=== PATIENT | male | born 1940 | race Caucasian/White ===

== ENCOUNTER 2016-11-23 22:20 | Emergency (ER) ==
[2016-11-23 22:36] VITALS: BP 153/89; TEMP 97.8; BMI 26.6
[2016-11-23] MEDS ORDERED: SODIUM CHLORIDE 1,000 ML IV STA (22:45)
[2016-11-23 23:05] LABS: BASOPHILS # (AUTO) 0.1 K/uL (0-0.2); EOSINOPHILS # (AUTO) 0.2 K/ul (0.0-0.7); EOSINOPHILS % (AUTO) 4.3 % (0.0-7.0); HEMATOCRIT 31.7 % (42.0-52.0); HEMOGLOBIN 11.2 g/dl (14.0-18.0); IMMATURE GRANULOCYTE % (AUTO) 0.2 % (0.0-5.0); MEAN CORPUSCULAR HEMOGLOBIN 30.6 pg (27.0-31.0); MEAN CORPUSCULAR HGB CONC 35.3 (31.8-35.4); MEAN CORPUSCULAR VOLUME 86.6 fl (80.0-94.0); MONOCYTES # (AUTO) 0.5 K/uL (0.4-2.0); MONOCYTES % (AUTO) 10.1 (0-10); NEUTROPHILS # (AUTO) 2.1 K/ul (2.0-6.9); NEUTROPHILS % (AUTO) 43.4; PLATELET COUNT 293 10^3/uL (140-440); RED BLOOD COUNT 3.66 10^6/ul (4.70-6.10); WHITE BLOOD COUNT 4.85 K/ul (4.2-10.2)
[2016-11-23 23:29] LABS: ALBUMIN 3.6 g/dL (3.4-5.0); ALBUMIN/GLOBULIN RATIO 0.9; ANION GAP 12.6; BILIRUBIN,TOTAL 0.34 mg/dL (0.00-1.20); BUN/CREATININE RATIO 11.38; CALCIUM 9.2 mg/dL (8.2-10.2); CREATININE 2.02 mg/dL (0.60-1.10); POTASSIUM 3.6 mmol/L (3.5-5.1); TOTAL PROTEIN 7.6 g/dL (5.8-8.1)
--- NOTE | 2016-11-23 23:32 | ED.PDOC ---
General ED Provider: Dr. ROBERT LEON Chief Complaint: Diabetes Stated Complaint: patient states the [facility]. Admits he has been drinking [place] juice for breakfast. [facility] His recent HGA1C was 14 and last creatwas 2.3 Time Seen by Physician: 23:31 Mode of Arrival: Walk-In Information Source: Patient Exam Limitations: No limitations Primary Care Provider: MALIA ALBERTO Nursing and Triage Documentation Reviewed and Agree: Yes Review of Systems - Review Of Systems Constitutional: Reports: No symptoms Eyes: Reports: No symptoms Ears, Nose, Mouth, Throat: Reports: No symptoms Respiratory: Reports: No symptoms Cardiac: Reports: No symptoms GI: Reports: No symptoms : Reports: No symptoms Musculoskeletal: Reports: No symptoms Skin: Reports: No symptoms Neurological: Reports: No symptoms Endocrine: Reports: Increased thirst Hematologic/Lymphatic: Reports: No symptoms All Other Systems: Reviewed and Negative Past Medical History - Past Medical History Endocrine: Reports: DM 2, Dyslipidemia Cardiovascular: Reports: None Respiratory: Reports: None Hematological: Reports: None Gastrointestinal: Reports: GERD Genitourinary: Reports: Kidney stones Neuro/Psych: Reports: None Musculoskeletal: Reports: Arthritis Cancer: Reports: None - Surgical History General Surgical History: Reports: None - Family History Family History: Reports: None - Social History Smoking Status: Former smoker Hx Substance Use: No Alcohol Screening: None - Immunizations Tetanus Shot up to Date: No Physical Exam - Physical Exam Appearance: Well-appearing Ill-appearing: Mild Eyes: BRODY, EOMI, Conjunctiva clear ENT: Ears normal, Nose normal, Oropharynx normal Respiratory: Airway patent, Breath sounds clear, Breath sounds equal, Respirations nonlabored Cardiovascular: RRR, Pulses normal, No rub, No murmur GI/: Soft, Nontender, No masses, Bowel sounds normal, No Organomegaly Musculoskeletal: Normal strength, ROM intact, No edema, No calf tenderness Skin: Warm, Dry, Normal color Neurological: Sensation intact, Motor intact, Reflexes intact, Cranial nerves intact, Alert, Oriented Psychiatric: Affect appropriate, Mood appropriate Critical Care Note - Critical Care Note Total Time (mins): 0 Course - Course Hematology/Chemistry: 11/23/16 22:50 11/23/16 22:50 Orders, Labs, Meds: Lab Review 11/23/16 11/24/16 22:50 00:30 WBC 4.85 RBC 3.66 L Hgb 11.2 L Hct 31.7 L MCV 86.6 MCH 30.6 MCHC 35.3 RDW Coeff of Farrah 11.9 Plt Count 293 Immature Gran % (Auto) 0.2 Neut % (Auto) 43.4 Lymph % (Auto) 41.0 [place] % (Auto) 10.1 H Eos % (Auto) 4.3 Baso % (Auto) 1.0 Immature Gran # (Auto) 0.0 Neut # 2.1 Lymph # 2.0 [place] # 0.5 Eos # 0.2 Baso # 0.1 Sodium 130 L Potassium 3.6 Chloride 91 L Carbon Dioxide 30 Anion Gap 12.6 BUN 23 H Creatinine 2.02 H Estimated GFR (MDRD) 32.00 BUN/Creatinine Ratio 11.38 Glucose 744 H* Calcium 9.2 Total Bilirubin 0.34 AST 35 ALT 61 Alkaline Phosphatase 75 Total Protein 7.6 Albumin 3.6 Globulin 4.0 Albumin/Globulin Ratio 0.90 Urine Color Yellow Urine Clarity Clear Urine pH 5.5 Ur Specific [place] 1.010 Urine Protein Negative Urine Glucose (UA) 2+ Urine Ketones Negative Urine Blood Negative Urine Nitrite Negative Urine Bilirubin Negative Urine Urobilinogen 0.2 Ur Leukocyte Esterase Negative Acetone, Qual None Orders Category Date Time Status BLOOD GLUCOSE MONITORING Q1HR CARE 11/23/16 23:54 Active BLOOD GLUCOSE MONITORING Q1HR CARE 11/24/16 00:19 Active ACCUCHECK (ED) [ED ACCUCHECK ASSESSMENT] .ONCE EMERGENCY 11/24/16 01:34 Active ED IV/MEDIPORT/POWERPORT .ONCE EMERGENCY 11/23/16 22:45 Active ACETONE, QUALITATIVE Stat LAB 11/23/16 22:50 Completed CBC W/ AUTO DIFF Stat LAB 11/23/16 22:50 Completed COMPREHENSIVE METABOLIC PANEL Stat LAB 11/23/16 22:50 Completed URINALYSIS C & S IF INDICATED Stat LAB 11/24/16 00:30 Completed 0.9 % Sodium Chloride [Saline Flush] MEDS 11/23/16 22:45 Discontinued 1 syr IVF PRN PRN Insulin Regular, Human [Humulin R] MEDS 11/24/16 00:18 Discontinued 10 unit SUBCUT ONCE STA Insulin Regular, Human [Humulin R] MEDS 11/24/16 02:22 Discontinued 5 unit SUBCUT ONCE STA Sodium Chloride 0.9% [Sodium Chloride] 1,000 ml MEDS 11/23/16 22:45 Discontinued IV BOLUS Sodium Chloride 0.9% [Sodium Chloride] 1,000 ml MEDS 11/24/16 00:27 Discontinued IV BOLUS Medications Discontinued Medications Generic Name Dose Route Start Last Admin Trade Name Freq PRN Reason Stop Dose Admin Sodium Chloride 1,000 mls @ 1,000 mls/hr 11/23/16 22:45 11/23/16 23:04 Sodium Chloride IV 11/23/16 23:44 1,000 mls/hr BOLUS STA Administration Sodium Chloride 1,000 mls @ 1,000 mls/hr 11/24/16 00:27 11/24/16 00:29 Sodium Chloride IV 11/24/16 01:26 1,000 mls/hr BOLUS STA Administration Insulin Human Regular 10 unit 11/24/16 00:18 11/24/16 00:23 Humulin R SUBCUT 11/24/16 00:19 10 unit ONCE STA Administration Insulin Human Regular 5 unit 11/24/16 02:22 11/24/16 02:49 Humulin R SUBCUT 11/24/16 02:23 5 unit ONCE STA Administration Sodium Chloride 1 syr 11/23/16 22:45 Saline Flush IVF PRN PRN To flush IV Vital Signs: Temp Pulse Resp BP Pulse Ox 11/23/16 22:20 97.8 F 90 20 153/89 H 97 Departure - Departure Time of Disposition: 01:52 Disposition: HOME SELF-CARE Discharge Problem: Uncontrolled diabetes mellitus type 2 without complications 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: without residential use Qualifier Code: (E11.65) Type 2 diabetes mellitus with hyperglycemia Instructions: Type 2 Diabetes in Adults (ED) Condition: Fair Pt referred to PMD for follow-up: Yes Additional Instructions: Avoid [place] juice or sugary products [facility] Allergies/Adverse Reactions: Allergies Insulins Adverse Reaction (Verified 11/24/16 00:33) Rash lisinopril Adverse Reaction (Verified 11/24/16 00:33) simvastatin Adverse Reaction (Verified 11/24/16 00:33) Home Medications: Ambulatory Orders Chlorthalidone 25 mg PO DAILY 11/23/16 Glyburide [Diabeta] 5 mg PO BEDTIME 11/23/16 Glyburide [Diabeta] 10 mg PO DAILY 03/16/17 Omeprazole [Prilosec] 20 mg PO DAILY 11/23/16 Disposition Discussed With: Patient
[2016-11-23] MEDS ORDERED: HUMALOG SUBCUT STA (23:53)
[2016-11-24] MEDS ORDERED: HUMULIN R SUBCUT STA ×2 (00:18→02:22)
[2016-11-24] MEDS ORDERED: SODIUM CHLORIDE 1,000 ML IV STA (00:27)
[2016-11-24 00:46] LABS: ADD URINE MICROSCOPIC NO; BILIRUBIN,URINE Negative (NEGATIVE); KETONES,URINE Negative (NEGATIVE); LEUKOCYTE ESTERASE ,URINE Negative (NEGATIVE); NITRITE,URINE Negative (NEGATIVE); PH,URINE 5.5 (5-9); PROTEIN,URINE Negative (NEGATIVE); URINE, BLOOD Negative (NEGATIVE)
== END 2016-11-24 03:45 | disposition home or self-care (01) ==
LOC: ED 22:20
DX: E11.65 Type 2 diabetes mellitus with hyperglycemia (principal)
CPT/HCPCS: 36415; 80053; 81001; 82009; 82962; 85025; 96360; 96361; 96372; 99283

== ENCOUNTER 2017-10-24 10:47 | Inpatient (IN) ==
[2017-10-24] MEDS ORDERED: SODIUM CHLORIDE 1,000 ML IV STA (11:20)
--- NOTE | 2017-10-24 12:49 | ED.PDOC ---
General ED Provider: Dr. HERMELINDA COTTON Chief Complaint: Altered Mental Status Stated Complaint: ALTERED MENTAL STATE Time Seen by Physician: 11:00 (UPON MY EXAM PT WAS AOX3 NO DEFICIT) Mode of Arrival: Walk-In Information Source: Patient Exam Limitations: No limitations Primary Care Provider: MALIA ALBERTO Nursing and Triage Documentation Reviewed and Agree: Yes Reviewed sepsis parameters & appropriate labs ordered?: Yes System Inflammatory Response Syndrome: Not Applicable Sepsis Protocol: For patient's 13 years and over: Temp is 96.8 and below OR 101 and greater Pulse >90 BPM Resp >20/minute Acutely Altered Mental Status Are patient's symptoms suggestive of a new infection, such as: -Pneumonia -Skin, Soft Tissue -Endocarditis -UTI -Bone, Joint Infection -Implantable Device -Acute Abdominal Infection -Wound Infection -Meningitis -Blood Stream Catheter Infection -Unknown System Inflammatory Response Syndrome: Not Applicable Neurological Complaint Exam - Altered Mental Status Complaint/Exam Current Mental Status: Confusion Last Known Well: 1 DAY AGO Onset: Gradual Duration: 1 DAY UPON ARRIVAL WAS TOTALLY ORIENATEDX3 NO DEFICITS NO PAIN Symptoms Are: Resolved Timing: Intermittent Episodes Lasting: Hours Initial Severity: Mild Current Severity: None Eye Deviation Present: No Character: Reports: Confusion Aggravating: Reports: None Alleviating: Reports: Spontaneous resolution Associated Signs and Symptoms: Denies: Dizziness, Weakness, Headache, Fever, Illness, Nuchal rigidity, Seizure, Nausea, Vomiting, Recently depressed, Trauma Cardiac Risk Factors: Reports: Diabetes, Elevated lipids CVA Risk Factors: Reports: Diabetes Related Surgical History: Reports: None Carotid Bruit Present: No Nystagmus Present: No Gag Reflex Present: Yes Meningeal Signs Positive: No Focal Weakness: Present: None Focal Sensory Loss: Present: None Gait: Normal Babinski Sign: Negative Right, Negative Left Differential Diagnoses: Hypothermia, Intoxication, Metabolic Disorder, Hypoglycemia, Medication reaction, Sepsis, TIA, CVA Review of Systems - Review Of Systems Constitutional: Reports: No symptoms Eyes: Reports: No symptoms Ears, Nose, Mouth, Throat: Reports: No symptoms Respiratory: Reports: No symptoms Cardiac: Reports: No symptoms GI: Reports: No symptoms : Reports: No symptoms Musculoskeletal: Reports: No symptoms Skin: Reports: No symptoms Neurological: Reports: Cognitive dysfunction Endocrine: Reports: No symptoms Hematologic/Lymphatic: Reports: No symptoms All Other Systems: Reviewed and Negative Past Medical History - Past Medical History Previously Healthy: Yes Endocrine: Reports: DM 2, Dyslipidemia Cardiovascular: Reports: None Respiratory: Reports: None Hematological: Reports: None Gastrointestinal: Reports: GERD Genitourinary: Reports: Kidney stones Neuro/Psych: Reports: None Musculoskeletal: Reports: Arthritis Cancer: Reports: None - Surgical History General Surgical History: Reports: None - Family History Family History: Reports: None - Social History Smoking Status: Former smoker Hx Substance Use: No Alcohol Screening: None Physical Exam - Physical Exam Appearance: Well-appearing, No pain distress, Well-nourished Eyes: BRODY, EOMI, Conjunctiva clear ENT: Ears normal, Nose normal, Oropharynx normal Respiratory: Airway patent, Breath sounds clear, Breath sounds equal, Respirations nonlabored Cardiovascular: RRR, Pulses normal, No rub, No murmur GI/: Soft, Nontender, No masses, Bowel sounds normal, No Organomegaly Musculoskeletal: Normal strength, ROM intact, No edema, No calf tenderness Skin: Warm, Dry, Normal color Neurological: Sensation intact, Motor intact, Reflexes intact, Cranial nerves intact, Alert, Oriented Psychiatric: Affect appropriate, Mood appropriate Interpretation - Radiology Interpretation Radiology Interpretation By: Radiologist Re-Evaluation - Re-Evaluation Time of Re-Evaluation: 12:00 Status: Improved Vital Signs Stable: Yes Pain Level: 0 Appearance: NAD Lungs: Clear Skin: Warm and Dry Neuro: Alert and Oriented X3 CV: RRR - Re-Evaluation Time of Re-Evaluation: 12:50 Status: Improved Vital Signs Stable: Yes Pain Level: 0 Appearance: NAD Skin: Warm and Dry Neuro: Alert and Oriented X3 CV: RRR Physician Notification - Case Discussed Physician Notified: [email or web address] Time of Notification: 13:42 Admit To: Inpatient Critical Care Note - Critical Care Note Total Time (mins): 0 Course - Course Hematology/Chemistry: 10/24/17 11:40 10/24/17 11:40 Orders, Labs, Meds: Lab Review 10/24/17 10/24/17 10/24/17 11:40 11:40 11:40 WBC 6.41 RBC 4.11 L Hgb 12.6 L Hct 35.0 L MCV 85.2 MCH 30.7 MCHC 36.0 H RDW Coeff of Farrah 11.8 Plt Count 314 Immature Gran % (Auto) 0.5 Neut % (Auto) 56.9 Lymph % (Auto) 27.0 [place] % (Auto) 12.5 H Eos % (Auto) 2.2 Baso % (Auto) 0.9 Immature Gran # (Auto) 0.0 Neut # 3.7 Lymph # 1.7 [place] # 0.8 Eos # 0.1 Baso # 0.1 Puncture Site O2 Saturation ABG pH ABG pCO2 ABG pO2 ABG HCO3 ABG Total CO2 ABG Base Excess Timothy Test FiO2 % Sodium 132 L Potassium 3.6 Chloride 91 L Carbon Dioxide 27 Anion Gap 17.6 BUN 31 H Creatinine 1.99 H Estimated GFR (MDRD) 33.00 BUN/Creatinine Ratio 15.57 Glucose 525 H* Lactic Acid 13.6 Calcium 10.3 H Total Bilirubin 0.8 AST 32 ALT 38 Alkaline Phosphatase 77 Total Creatine Kinase 58 Troponin I < 0.0100 Total Protein 8.1 Albumin 3.7 Globulin 4.4 Albumin/Globulin Ratio 0.84 Procalcitonin TSH Free T4 Urine Color Urine Clarity Urine pH Ur Specific [place] Urine Protein Urine Glucose (UA) Urine Ketones Urine Blood Urine Nitrite Urine Bilirubin Urine Urobilinogen Ur Leukocyte Esterase Urine Opiates Screen Ur Oxycodone Screen Urine Methadone Screen Ur Propoxyphene Screen Ur Barbiturates Screen U Tricyclic Antidepress Ur Phencyclidine Scrn Ur Amphetamine Screen U Methamphetamines Scrn U Benzodiazepines Scrn Urine Cocaine Screen U Cannabinoids Screen 10/24/17 10/24/17 10/24/17 11:40 11:40 11:50 WBC RBC Hgb Hct MCV MCH MCHC RDW Coeff of Farrah Plt Count Immature Gran % (Auto) Neut % (Auto) Lymph % (Auto) [place] % (Auto) Eos % (Auto) Baso % (Auto) Immature Gran # (Auto) Neut # Lymph # [place] # Eos # Baso # Puncture Site R rad O2 Saturation 99.0 ABG pH 7.621 H* ABG pCO2 23.6 L ABG pO2 123.0 H ABG HCO3 24.3 ABG Total CO2 25 ABG Base Excess 3 H Timothy Test + FiO2 % 21.0 Sodium Potassium Chloride Carbon Dioxide Anion Gap BUN Creatinine Estimated GFR (MDRD) BUN/Creatinine Ratio Glucose Lactic Acid Calcium Total Bilirubin AST ALT Alkaline Phosphatase Total Creatine Kinase Troponin I Total Protein Albumin Globulin Albumin/Globulin Ratio Procalcitonin < 0.05 TSH 4.500 Free T4 0.97 Urine Color Urine Clarity Urine pH Ur Specific [place] Urine Protein Urine Glucose (UA) Urine Ketones Urine Blood Urine Nitrite Urine Bilirubin Urine Urobilinogen Ur Leukocyte Esterase Urine Opiates Screen Ur Oxycodone Screen Urine Methadone Screen Ur Propoxyphene Screen Ur Barbiturates Screen U Tricyclic Antidepress Ur Phencyclidine Scrn Ur Amphetamine Screen U Methamphetamines Scrn U Benzodiazepines Scrn Urine Cocaine Screen U Cannabinoids Screen 10/24/17 10/24/17 12:20 12:20 WBC RBC Hgb Hct MCV MCH MCHC RDW Coeff of Farrah Plt Count Immature Gran % (Auto) Neut % (Auto) Lymph % (Auto) [place] % (Auto) Eos % (Auto) Baso % (Auto) Immature Gran # (Auto) Neut # Lymph # [place] # Eos # Baso # Puncture Site O2 Saturation ABG pH ABG pCO2 ABG pO2 ABG HCO3 ABG Total CO2 ABG Base Excess Timothy Test FiO2 % Sodium Potassium Chloride Carbon Dioxide Anion Gap BUN Creatinine Estimated GFR (MDRD) BUN/Creatinine Ratio Glucose Lactic Acid Calcium Total Bilirubin AST ALT Alkaline Phosphatase Total Creatine Kinase Troponin I Total Protein Albumin Globulin Albumin/Globulin Ratio Procalcitonin TSH Free T4 Urine Color Yellow Urine Clarity Clear Urine pH 6.0 Ur Specific [place] 1.010 Urine Protein Negative Urine Glucose (UA) 3+ H Urine Ketones Trace Urine Blood Negative Urine Nitrite Negative Urine Bilirubin Negative Urine Urobilinogen 0.2 Ur Leukocyte Esterase Negative Urine Opiates Screen Negative Ur Oxycodone Screen Negative Urine Methadone Screen Negative Ur Propoxyphene Screen Negative Ur Barbiturates Screen Negative U Tricyclic Antidepress Negative Ur Phencyclidine Scrn Negative Ur Amphetamine Screen Negative U Methamphetamines Scrn Negative U Benzodiazepines Scrn Negative Urine Cocaine Screen Negative U Cannabinoids Screen Negative Orders Category Date Time Status ABG DRAW REQUEST Stat CARDIO 10/24/17 11:17 Completed EKG-(ED ONLY) Stat CARDIO 10/24/17 11:19 Completed NPO REMINDER: IMAGING ONCE CARE 10/24/17 11:19 Completed ED IV/MEDIPORT/POWERPORT .ONCE EMERGENCY 10/24/17 11:20 Active ABG Stat LAB 10/24/17 11:50 Completed BLOOD CULTURE (ED ONLY) Stat LAB 10/24/17 11:40 Received CBC W/ AUTO DIFF Stat LAB 10/24/17 11:40 Completed COMPREHENSIVE METABOLIC PANEL Stat LAB 10/24/17 11:40 Completed CREATINE KINASE Stat LAB 10/24/17 11:40 Completed FREE T4 (FREE THYROXINE) Stat LAB 10/24/17 11:40 Completed LACTIC ACID Stat LAB 10/24/17 11:40 Completed PROCALCITONIN Stat LAB 10/24/17 11:40 Completed THYROID STIMULATING HORMONE Stat LAB 10/24/17 11:40 Completed TROPONIN I Stat LAB 10/24/17 11:40 Completed URINALYSIS C & S IF INDICATED Stat LAB 10/24/17 12:20 Completed URINE DRUG SCREEN (RAPID FOR ED) [DRUG SCREEN, URINE, LAB 10/24/17 12:20 Completed RAPID] Stat 0.9 % Sodium Chloride [Saline Flush] MEDS 10/24/17 11:20 Active 1 syr IVF PRN PRN Insulin Regular, Human [Humulin R] MEDS 10/24/17 12:52 Discontinued 10 unit SUBCUT ONCE STA Sodium Chloride 0.9% [Sodium Chloride] 1,000 ml MEDS 10/24/17 11:20 Active IV 125 mls/hr CT CHEST W/O CONTRAST Stat RADS 10/24/17 11:[address] HEAD W/O CONTRAST Stat RADS 10/24/17 11:19 Completed Medications Generic Name Dose Route Start Last Admin Trade Name Freq PRN Reason Stop Dose Admin Sodium Chloride 1,000 mls @ 125 mls/hr 10/24/17 11:20 10/24/17 12:18 Sodium Chloride IV 10/24/17 19:19 125 mls/hr .Q8H STA Administration Sodium Chloride 1 syr 10/24/17 11:20 10/24/17 12:17 Saline Flush IVF 1 syr PRN PRN Administration To flush IV Discontinued Medications Generic Name Dose Route Start Last Admin Trade Name Freq PRN Reason Stop Dose Admin Insulin Human Regular 10 unit 10/24/17 12:52 10/24/17 13:16 Humulin R SUBCUT 10/24/17 12:53 10 unit ONCE STA Administration Vital Signs: Temp Pulse Resp BP Pulse Ox 10/24/17 10:51 97.1 F L 92 H 20 143/77 H 98 Departure - Departure Time of Disposition: 15:00 Disposition: ADMITTED INPATIENT Discharge Problem: Altered mental status, Uncontrolled diabetes mellitus Instructions: Altered Mental Status (ED) Condition: Good Pt referred to PMD for follow-up: Yes IPMP verified?: No Additional Instructions: Please call your Family Physician as soon as possible to schedule a follow-up appointment. Allergies/Adverse Reactions: Allergies Insulins Adverse Reaction (Verified 10/24/17 10:57) Rash lisinopril Adverse Reaction (Verified 10/24/17 10:57) simvastatin Adverse Reaction (Verified 10/24/17 10:57) Home Medications: Ambulatory Orders Chlorthalidone 25 mg PO DAILY 11/23/16 Omeprazole [Prilosec] 20 mg PO QDAC 10/24/17 Ropinirole HCl [Requip Xl] 2 mg PO BEDTIME 10/24/17 Saxagliptin HCl [Onglyza] 5 mg PO DAILY 10/24/17
[2017-10-24] MEDS ORDERED: HUMULIN R SUBCUT STA ×2 (12:52→13:43)
--- NOTE | 2017-10-24 13:24 | CT ---
Exam: CT of the brain without intravenous contrast. Comparison: None available. Reason for exam: Altered mental status. FINDINGS: No acute intracranial hemorrhage, mass effect, ventricular dilatation, or territorial infa rction. The quadrigeminal and ambient cisterns are patent. There is no extraaxial fluid collection. Parenchymal changes are seen consistent with chronic microvascular disease and age related atrophy. Calcifications are seen in the vertebral arteries. No displaced calvarial fracture is seen. There is minimal mucosal thickening in the ethmoid sinuses. Impression: 1. No acute intracranial findings. 2. Parenchymal changes consistent with chronic microvascular disease. Report faxed at [id number] hours on 10/24/2017.
--- NOTE | 2017-10-24 13:27 | CT ---
EXAM: CT chest without contrast. HISTORY: Cough. COMPARISON: 06/13/2010. TECHNIQUE: Multiple axial images of the chest were obtained without intravenous contrast. Images we re reformatted in the sagittal and coronal planes. FINDINGS: Evaluation for lymphadenopathy is limited by lack of intravenous contrast. Heart size is normal. There is no pericardial effusion. Atherosclerotic calcifications present. Calcified granulomatous changes noted. Calcified pleural plaquing noted along the right diaphragm. No consolidation, pleural effusion or pneumothorax identified. Moderate sized hiatal hernia is present. The bladder wall may be calcified but appears unchanged. N onobstructing left renal calculi are present. Probable left lower pole cortical cyst. Old compressi on deformity of T5 noted. IMPRESSION: No acute cardiopulmonary process.
[2017-10-24 15:22] VITALS: BMI 23.0
[2017-10-24] MEDS ORDERED: INFUVITE ADULT 10 ML in SODIUM CHLORIDE 0.9%-KCL 20 MEQ 1,000 ML IV STA (17:08)
[2017-10-24] MEDS: HUMULIN R SUBCUT PRN (17:28)
[2017-10-24] MEDS ORDERED: INFUVITE ADULT IV ONE ×2 (17:32→21:32)
[2017-10-24] MEDS ORDERED: NON-FORMULARY MEDICATION (Ropinirole Hcl [Requip] 2 MG) PO SCH (21:00)
[2017-10-24] MEDS ORDERED: ROPINIROLE HCL 2 MG PO SCH (21:00)
[2017-10-24] MEDS ORDERED: REQUIP PO SCH (21:00)
[2017-10-24] MEDS: REQUIP PO SCH (21:25)
[2017-10-25] MEDS: PRILOSEC PO SCH (06:13)
[2017-10-25] MEDS: HUMULIN R SUBCUT PRN ×4 (06:13→20:48)
[2017-10-25] MEDS: HYDROCHLOROTHIAZIDE PO SCH (08:52)
[2017-10-25] MEDS ORDERED: CHLORTHALIDONE 25 MG PO SCH (09:00)
--- NOTE | 2017-10-25 09:36 | US ---
EXAM: ULTRASOUND CAROTID DUPLEX, BILATERAL HISTORY: Altered mental status FINDINGS: Hayes-scale ultrasound, color Doppler and spectral analysis was performed. Velocities are in meters per second. By hayes scale and color Doppler imaging, there were regions of heterogeneous plaque formation identif ied within the carotid bulbs and internal carotid arteries. These regions of plaque appeared to [place] in less than 50% vessel diameter. RIGHT: External carotid artery peak systolic velocity: 0.9 Common carotid artery peak systolic velocity/end diastolic velocity: 0.7/0.2 Internal carotid artery peak systolic velocity: 0.7 ICA/CCA peak systolic velocity ratio: 1.0 ICA end diastolic velocity: 0.3 LEFT: External carotid artery peak systolic velocity: 1.1 Common carotid artery peak systolic velocity/end diastolic velocity: 0.8/0.2 Internal carotid artery peak systolic velocity: 0.8 ICA/CCA peak systolic velocity ratio: 1.0 ICA end diastolic velocity: 0.3 The right and left vertebral arteries were antegrade. IMPRESSION: 1. By hayes scale and color Doppler imaging, there were regions of heterogeneous plaque formation scarlett ntified within the carotid bulbs and internal carotid arteries. These regions of plaque appeared to remain less than 50% vessel diameter. 2. Internal carotid artery peak systolic velocities and ICA/CCA peak systolic velocity ratios indica te no hemodynamically significant stenosis bilaterally. 3. Both vertebral arteries were antegrade.
[2017-10-25] MEDS: REQUIP PO SCH (20:48)
[2017-10-26] MEDS: PRILOSEC PO SCH (05:53)
[2017-10-26] MEDS: HUMULIN R SUBCUT PRN ×4 (05:53→21:26)
[2017-10-26] MEDS: HYDROCHLOROTHIAZIDE PO SCH (08:40)
[2017-10-26] MEDS: TRADJENTA PO SCH (12:00)
[2017-10-26] MEDS: GLUCOPHAGE PO SCH (17:39)
[2017-10-26] MEDS: NICODERM 21 MG TD SCH (17:42)
[2017-10-26] MEDS: REQUIP PO SCH (21:26)
[2017-10-27] MEDS: HUMULIN R SUBCUT PRN ×4 (05:33→20:50)
[2017-10-27] MEDS: GLUCOPHAGE PO SCH ×2 (09:13→16:34)
[2017-10-27] MEDS: TRADJENTA PO SCH (09:13)
[2017-10-27] MEDS: HYDROCHLOROTHIAZIDE PO SCH (09:13)
[2017-10-27] MEDS: NICODERM 21 MG TD SCH (09:14)
[2017-10-27] MEDS: REQUIP PO SCH (20:51)
[2017-10-28] MEDS: HUMULIN R SUBCUT PRN ×4 (05:31→20:41)
[2017-10-28] MEDS: HYDROCHLOROTHIAZIDE PO SCH (08:21)
[2017-10-28] MEDS: NICODERM 21 MG TD SCH (08:21)
[2017-10-28] MEDS: GLUCOPHAGE PO SCH ×2 (08:21→17:05)
[2017-10-28] MEDS: TRADJENTA PO SCH (08:21)
[2017-10-28] MEDS: REQUIP PO SCH (20:41)
[2017-10-29] MEDS: HUMULIN R SUBCUT PRN ×2 (05:55→11:30)
[2017-10-29] MEDS: GLUCOPHAGE PO SCH (09:00)
[2017-10-29] MEDS: TRADJENTA PO SCH (09:00)
[2017-10-29] MEDS: NICODERM 21 MG TD SCH (09:00)
[2017-10-29 10:39] VITALS: BP 118/69; TEMP 97.9
--- NOTE | 2017-11-02 15:20 | DS ---
PATIENT IDENTIFICATION: 77 year old male was admitted to the hospital because of sudden confusion and recent episode of ataxia with headache. The patient was noted to have a markedly elevated blood sugar in the emergency room 525 and alkalotic blood gasses. HOSPITAL COURSE: The patient at the examination was alert and responsive and oriented. He was not dyspneic or tachypneic. NECK: No masses and No bruit CHEST: Symmetrical and equal LUNGS: Clear to auscultation in both sides HEART: Normal sinus rhythm ABDOMEN: Unremarkable Blood sugar was 525 on admission. HgbA1c is 17.3. His medication for diabetes was Onglyza 5mg. He had a prescription of Metformin however that was not filled since he still has it in his possession. The patient's fast insulin was measured the following day showing 6.5, normal and plasma C Peptide 1.4 still within normal. DELIA antibody less than 5. The patient's urine drug screen was negative. Urinalysis 3+ sugar, trace Ketones. The patient was given 9% Sodium Chloride solution intervenously at 125cc per hour. He was placed on a sliding scale insulin. Humulin R was utilized. His Onglyza was discontinued and the rest of his medications were continued. The patient was given Linagliptin 5mg PO daily as well Metformin 500mg twice a day. His EGFR was 46. Blood sugar was monitored and it had been decreasing. The patient was feeling better. The labs done 10/26/17 showed moderate anemia 11.1gram hgb, 31.9 hct, normal WBC and plt count. His sodium and potassium slightly below normal not clinically significant and the BUN has decreased to 18 from 31 and creatinine 1.49 from 1.99 and EGFR is 46. Blood sugar was 344 fasting. The patient however looks well and not dyspneic or tachypneic with good color. He denies any chest pain, headaches or any visual disturbances. He continued to improved and the patient on 10/29/17 was alert, ambulatory and feels ready to go home. Another hematology shows CBC with moderate anemia with normal WBC and differential as well as plt count. The atrial blood gasses are better with oxygen saturation of 98, pH 7.51, pCO2 37, pO2 101, HCO3 29, total Co2 30 and base excess +6 and FiO2 21.Electrolyte are normal and his fasting blood sugar this morning was 206. His BUN has risen from 18 to 26 and creatinine of 1.63 from 1.49. EGFR has decreased to 41. I had advised the patient to drink plenty of water. He does drink coffee. I did advised him to reduce the coffee to about two cups of coffee a day. He drinks a whole lot more than that. He also puts sugar is in his coffee. At discharge he was alert, ambulatory with movement of all extremities and no facial weakness. LUNGS: Clear HEART: Normal sinus rhythm ABDOMEN: Unremarkable LEGS: No tenderness This patient was given 21mg of NicoDerm CQ while in the hospital. The NicoDerm was prescribed to hopefully improve his cognitive component. He has probably minimal cognitive improvement and his MMSE is 29. At discharge he was instructed not to resume the Onglyza and was prescribed Tradjenta 5mg daily and Metformin 500mg twice a day and NicoDerm CQ 125mg one patch daily. The patient was further instructed to followup with the [facility] in [place] as soon as possible. He had Carotid studies done during this admission and they were less than 50% narrowing or both internal carotid. He was given the dietary instruction by the information technology analyst. I did inform him that if he wants to follow more or less a simpler diet then he should eat vegetables, meat and fish and make sure the meat is lean. He should have also portion control or portion sizes. That might improve his sugar with the medication and hopefully improve his cognitive component. FINAL DIAGNOSES: 1. Episodes of confusion, transient etiology undetermined 2. Type 2 Diabetes Mellitus, uncontrolled blood sugar 525 3. History of restless leg syndrome 4. History of GERD PROGNOSIS: Guarded MTDD
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
--- NOTE | 2017-11-19 13:51 | PN ---
DATE OF VISIT: 10/26/17 SUBJECTIVE: The patient is more alert today and had been get out of bed and walking. VITAL SIGNS: Temperature 97.7 axillary, pulse 82, blood pressure 130/78, respiratory rate 18 , oxygen saturation 97% room air. He denies any headaches or double vision. No dizziness, no chest pain and no abdominal pain. Carotid studies showed no significant stenosis and it is less then 50%. The patient does remember his birthday and also his relatives. LUNGS: Clear although diminished breath sounds, no rales or wheezing HEART: Audible and regular. The patient's CBC today showed moderate anemia, 11.1 hgb , 31.9 hc, normal WBC and plt count. Chemistry showed slightly worse Potassium otherwise unremarkable. Electrolytes and Co2 27, BUN 18 from 31, creatinine down to 1.49 from 1.99. EGFR 46. Blood sugar this morning was down to 344. Albumin slightly lower at 3.2. Meals 100%. MTDD
--- NOTE | 2017-11-19 13:58 | PN ---
DATE OF VISIT: 10/27/17 SUBJECTIVE: The patient is alert and ambulatory with good movement of all extremities. He is pleasant and conversant and denies any headaches, visual disturbances or double vision. No chest pain and no abdominal pain. LUNGS: Still diminished breath sounds but no rales or wheezing. HEART: Audible and regular with good tones. VITAL SIGNS: Temperature 98.2, pulse 83, blood pressure 146/84, respiratory rate 15 and oxygen saturation 100 at room air. Good movement of all extremities. MTDD
--- NOTE | 2017-11-19 14:41 | PN ---
DATE OF VISIT: 10/28/17 SUBJECTIVE: The patient today is alert, ambulatory with movement of all extremities. He is more conversant. He recounted all his family tree. He has several half brothers and sisters. His mother was three times and the last marriage consisted of three siblings; him, Moris and a sister. He has contact with all his older siblings. He mentioned that his mother immigrated with her parents from [place] and was 7 years of age when she came to the [place]. 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 The patient is given a nicotine patch, hopefully improving his mentation. The patient seems to have a better cognitive function. I did tell him that he would need to followup with 's for a closer followup with his diabetes. This patient is getting a sliding scale insulin plus Tradjenta because of his renal problems and 500mg of Metformin. The patient's EGFR is now 46. The patient will have a repeat CBC and CMP tomorrow and possibly discharge him. I did advise him to exercise such as walking. He also told me that he has two children and he knows what they are; a son and girl. They have their own families. JAMIA
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
== END 2017-10-29 14:35 | disposition home or self-care (01) | DRG 948 ==
LOC: ED 10:47 → MEDSURG B 13:53
PROVIDERS: ADMIT General Practice; ATTEND General Practice
DX: R41.82 Altered mental status, unspecified (principal); E11.65 Type 2 diabetes mellitus with hyperglycemia; R27.0 Ataxia, unspecified; D64.89 Other specified anemias; I10 Essential (primary) hypertension; G25.81 Restless legs syndrome; K21.9 Gastro-esophageal reflux disease without esophagitis; Z79.899 Other long term (current) drug therapy
CPT/HCPCS: 36415; 80053; 80306; 81001; 82550; 82803; 82962; 83036; 83519; 83525; 83605; 84145; 84439; 84443; 84484; 84681; 85025; 86341; 87040; 93005; 93010; 96360; 96361; 96372; 99223; 99232; 99239; 99284

== ENCOUNTER 2017-10-30 20:43 | Emergency (ER) ==
[2017-10-30 20:53] VITALS: BP 156/89; TEMP 97; BMI 24.2
--- NOTE | 2017-10-30 20:57 | ED.PDOC ---
General ED Provider: Dr. ABDULKADIR PRINGLE Chief Complaint: Diabetes Stated Complaint: Patient was discharged from the hospital yesterday, called EMS , as his BS was more than 500. Time Seen by Physician: 20:56 Mode of Arrival: Ambulance Information Source: Patient, EMT Nursing and Triage Documentation Reviewed and Agree: Yes Reviewed sepsis parameters & appropriate labs ordered?: No System Inflammatory Response Syndrome: Not Applicable Sepsis Protocol: For patient's 13 years and over: Temp is 96.8 and below OR 101 and greater Pulse >90 BPM Resp >20/minute Acutely Altered Mental Status Are patient's symptoms suggestive of a new infection, such as: -Pneumonia -Skin, Soft Tissue -Endocarditis -UTI -Bone, Joint Infection -Implantable Device -Acute Abdominal Infection -Wound Infection -Meningitis -Blood Stream Catheter Infection -Unknown Endocrine Complaint Exam - Diabetic Complication Complaint/Exam Symptoms Are: Still present Timing: Constant Initial Severity: Moderate Current Severity: Moderate Character: Alert Aggravating: Reports: Medication change Alleviating: Reports: None Associated Signs and Symptoms: Denies: Decreased LOC, Polydipsia, Polyuria, Polyphagia, Weight loss, Abdominal pain, Nausea, Vomiting, Fever, Diaphoresis, Fruity breath Related History: Reports: Similar episode Cardiac Risk Factors: Reports: DM, Hypertension CVA Risk Factors: Reports: DM, Hypertension Serious Bacterial Infection Risk Factors: Reports: None Related Surgical History: Reports: None Acetone on Breath: No Dry Mucous Membranes: No Kussmaul Respirations: No Meningeal Signs: No Focal Weakness: None Focal Sensory Loss: None Gait: Normal Nystagmus Present: No Gag Reflex Present: No Finger to Nose: Normal Romberg Test Positive: No Differential Diagnoses: Hyperosmolar State, Hyperglycemia Review of Systems - Review Of Systems Constitutional: Reports: Malaise, Weakness Eyes: Reports: No symptoms Ears, Nose, Mouth, Throat: Reports: No symptoms Respiratory: Reports: No symptoms Cardiac: Reports: No symptoms GI: Reports: No symptoms : Reports: No symptoms Musculoskeletal: Reports: No symptoms Skin: Reports: No symptoms Neurological: Reports: No symptoms Endocrine: Reports: No symptoms Hematologic/Lymphatic: Reports: No symptoms All Other Systems: Reviewed and Negative Past Medical History - Past Medical History Previously Healthy: Yes Endocrine: Reports: DM 2, Dyslipidemia Cardiovascular: Reports: None Respiratory: Reports: None Hematological: Reports: None Gastrointestinal: Reports: GERD Genitourinary: Reports: Kidney stones Neuro/Psych: Reports: None Musculoskeletal: Reports: Arthritis Cancer: Reports: None - Surgical History General Surgical History: Reports: None - Family History Family History: Reports: None - Social History Smoking Status: Former smoker Hx Substance Use: No Alcohol Screening: None - Immunizations Tetanus Shot up to Date: No (unknown) Physical Exam - Physical Exam Appearance: Ill-appearing Eyes: BRODY, EOMI, Conjunctiva clear ENT: Ears normal, Nose normal, Oropharynx normal Respiratory: Airway patent, Breath sounds clear, Breath sounds equal, Respirations nonlabored Cardiovascular: RRR, Pulses normal, No rub, No murmur GI/: Soft, Nontender, No masses, Bowel sounds normal, No Organomegaly Musculoskeletal: Normal strength, ROM intact, No edema, No calf tenderness Skin: Warm, Dry, Normal color Neurological: Sensation intact, Motor intact, Reflexes intact, Cranial nerves intact, Alert, Oriented Psychiatric: Affect appropriate, Mood appropriate Critical Care Note - Critical Care Note Total Time (mins): 15 Course - Course Hematology/Chemistry: 10/30/17 21:04 10/30/17 21:04 Orders, Labs, Meds: Lab Review 10/30/17 10/30/17 10/30/17 21:04 21:04 21:04 WBC 6.85 RBC 3.57 L Hgb 10.9 L Hct 31.0 L MCV 86.8 MCH 30.5 MCHC 35.2 RDW Coeff of Farrah 11.9 Plt Count 338 Immature Gran % (Auto) 0.3 Neut % (Auto) 55.1 Lymph % (Auto) 29.2 [place] % (Auto) 10.8 H Eos % (Auto) 3.6 Baso % (Auto) 1.0 Immature Gran # (Auto) 0.0 Neut # 3.8 Lymph # 2.0 [place] # 0.7 Eos # 0.3 Baso # 0.1 Sodium 138 Potassium 3.5 Chloride 99 Carbon Dioxide 27 Anion Gap 15.5 BUN 34 H Creatinine 2.07 H Estimated GFR (MDRD) 31.00 BUN/Creatinine Ratio 16.42 Glucose 326 H Calcium 9.7 Total Bilirubin 0.6 AST 24 ALT 29 Alkaline Phosphatase 67 Total Protein 7.3 Albumin 3.6 Globulin 3.7 Albumin/Globulin Ratio 0.97 Urine Color Urine Clarity Urine pH Ur Specific [place] Urine Protein Urine Glucose (UA) Urine Ketones Urine Blood Urine Nitrite Urine Bilirubin Urine Urobilinogen Ur Leukocyte Esterase Acetone, Qual None 10/31/17 01:15 WBC RBC Hgb Hct MCV MCH MCHC RDW Coeff of Farrah Plt Count Immature Gran % (Auto) Neut % (Auto) Lymph % (Auto) [place] % (Auto) Eos % (Auto) Baso % (Auto) Immature Gran # (Auto) Neut # Lymph # [place] # Eos # Baso # Sodium Potassium Chloride Carbon Dioxide Anion Gap BUN Creatinine Estimated GFR (MDRD) BUN/Creatinine Ratio Glucose Calcium Total Bilirubin AST ALT Alkaline Phosphatase Total Protein Albumin Globulin Albumin/Globulin Ratio Urine Color Yellow Urine Clarity Clear Urine pH 5.0 Ur Specific [place] 1.015 Urine Protein Negative Urine Glucose (UA) 2+ Urine Ketones Negative Urine Blood Negative Urine Nitrite Negative Urine Bilirubin Negative Urine Urobilinogen 0.2 Ur Leukocyte Esterase Negative Acetone, Qual Orders Category Date Time Status BLOOD GLUCOSE MONITORING Q1HR CARE 10/30/17 22:09 Active ACETONE, QUALITATIVE Stat LAB 10/30/17 21:04 Completed CBC W/ AUTO DIFF Stat LAB 10/30/17 21:04 Completed COMPREHENSIVE METABOLIC PANEL Stat LAB 10/30/17 21:04 Completed URINALYSIS C & S IF INDICATED Stat LAB 10/31/17 01:15 Completed Insulin Regular, Human [Humulin R] MEDS 10/30/17 22:26 Discontinued 8 unit SUBCUT ONCE STA Medications Discontinued Medications Generic Name Dose Route Start Last Admin Trade Name Freq PRN Reason Stop Dose Admin Insulin Human Regular 8 unit 10/30/17 22:26 10/30/17 23:01 Humulin R SUBCUT 10/30/17 22:27 8 unit ONCE STA Administration Vital Signs: Temp Pulse Resp BP Pulse Ox 10/30/17 21:02 86 10/30/17 20:45 97 F L 91 H 16 156/89 H 98 Departure - Departure Time of Disposition: 22:32 Disposition: HOME SELF-CARE Discharge Problem: Uncontrolled diabetes mellitus Qualifiers: Diabetes mellitus type: type 2 Diabetes mellitus complication status: without complication Diabetes mellitus mcfp insulin use: without intermediate teacher use Qualified Code(s): E11.65 - Type 2 diabetes mellitus with hyperglycemia Instructions: Diabetes in the Older Adult (ED) Condition: Stable Pt referred to PMD for follow-up: Yes IPMP verified?: No Additional Instructions: Needs f/u with PMD needs medications to be adjusted. take your metformin as prescribed. Allergies/Adverse Reactions: Allergies Insulins Adverse Reaction (Verified 10/24/17 10:57) Rash lisinopril Adverse Reaction (Verified 10/24/17 10:57) simvastatin Adverse Reaction (Verified 10/24/17 10:57) Home Medications: Ambulatory Orders Chlorthalidone 25 mg PO DAILY 11/23/16 Omeprazole [Prilosec] 20 mg PO QDAC 10/24/17 Ropinirole HCl [Requip] 2 mg PO BEDTIME 10/24/17 Linagliptin [Tradjenta] 5 mg PO DAILY #30 tablet 10/29/17 Metformin HCl [Glucophage] 500 mg PO BIDWM #60 tablet 10/29/17 Nicotine [Nicoderm Cq] 1 each TD DAILY #30 patch.td24 10/29/17 Disposition Discussed With: Patient
[2017-10-30] MEDS ORDERED: HUMALOG SUBCUT STA (22:08)
[2017-10-30] MEDS ORDERED: HUMULIN R SUBCUT STA (22:26)
== END 2017-10-31 08:34 | disposition home or self-care (01) ==
LOC: ED 20:43
DX: E11.65 Type 2 diabetes mellitus with hyperglycemia (principal); I10 Essential (primary) hypertension; R53.1 Weakness; E78.5 Hyperlipidemia, unspecified; Z79.899 Other long term (current) drug therapy; R41.0 Disorientation, unspecified; H53.8 Other visual disturbances; R20.2 Paresthesia of skin
CPT/HCPCS: 36415; 80053; 81001; 82009; 82962; 85025; 96372; 99283